=== PATIENT | female | born 1950 | race Caucasian/White ===

== ENCOUNTER 2019-07-15 18:13 | Emergency (ER) | payer MEDICARE, OTHER ==
[~2019-07-15] VITALS: Ht 157.5 cm; Wt 54.0 kg
[2019-07-15 20:14] LABS: BASOPHILS % 0.9 % (0.0-2.0); HEMATOCRIT. 31.6 % (36.0-48.0); HEMOGLOBIN. 10.7 g/dL (12.0-16.0); LYMPHOCYTES % 32.3 % (20.0-50.0); MEAN CORPUSCULAR HEMOGLOBIN 31.1 pg (28.0-32.0); MEAN CORPUSCULAR VOLUME 91.9 fL (81.0-99.0); MEAN PLATELET VOLUME 8.2 fl (7.4-10.4); MONOCYTES % 6.1 % (2.0-8.0); NEUTROPHILS % 58.7 % (40.0-76.0); PLATELET 239 x1000/uL (130-400); RED BLOOD CELL COUNT 3.44 mill/uL (4.2-5.4); RED CELL DISTRIBUTION WIDTH 14.4 % (11.6-14.6)
[2019-07-15 20:21] LABS: CHLORIDE 110 mEq/L (98-107)
[2019-07-15 20:27] LABS: ETHANOL BLOOD < 10 mg/dL
[2019-07-15] MEDS ORDERED: HALOPERIDOL LACTATE 5MG/ML VIAL IM NR (21:30)
[2019-07-15] MEDS ORDERED: LORAZEPAM 2MG/ML CPJ IM ONE (23:15)
[2019-07-15] MEDS ORDERED: HALOPERIDOL LACTATE 5MG/ML VIAL IM ONE ×2 (23:15→23:45)
[2019-07-15] MEDS ORDERED: DIPHENHYDRAMINE 50MG/ML VIAL IM ONE (23:15)
[2019-07-15] MEDS ORDERED: LORAZEPAM 2MG/ML CPJ IM SCH (23:30)
[2019-07-16 02:47] LABS: CLARITY URINE CLEAR (CLEAR); COLOR URINE YELLOW (YELLOW); KETONES URINE NEGATIVE (NEGATIVE); LEUKOCYTE ESTERASE URINE NEGATIVE (NEGATIVE); NITRITE URINE NEGATIVE (NEGATIVE); OCCULT BLOOD URINE NEGATIVE (NEGATIVE); PROTEIN URINE NEGATIVE (NEGATIVE); SPECIFIC GRAVITY URINE 1.015 (1.005-1.030); UROBILINOGEN URINE 0.2 E.U./dL (0.2-1.0)
[2019-07-16 02:57] LABS: *AMPHETAMINES SCREEN URINE NEGATIVE (NEGATIVE); *BARBITURATES SCREEN URINE NEGATIVE (NEGATIVE); *BENZODIAZEPINES SCREEN URINE NEGATIVE (NEGATIVE)
[2019-07-16 02:58] LABS: *COCAINE SCREEN URINE NEGATIVE (NEGATIVE); CANNABINOID URINE SCREEN NEGATIVE (NEGATIVE); METHADONE URINE SCREEN NEGATIVE (NEGATIVE); OPIATES URINE SCREEN NEGATIVE (NEGATIVE); PHENCYCLIDINE URINE SCREEN NEGATIVE (NEGATIVE)
[2019-07-16] MEDS ORDERED: DIPHENHYDRAMINE 50MG/ML VIAL IM STA (09:43)
[2019-07-16] MEDS ORDERED: LORAZEPAM 2MG/ML CPJ IM STA (09:43)
[2019-07-16] MEDS ORDERED: HALOPERIDOL LACTATE 5MG/ML VIAL IM ONE ×2 (09:45→16:15)
[2019-07-16] MEDS ORDERED: LORAZEPAM 2MG/ML CPJ IM ONE (16:15)
[2019-07-17] MEDS ORDERED: LORAZEPAM 2MG/ML CPJ IM ONE ×2 (05:00→16:15)
[2019-07-17] MEDS ORDERED: OLANZAPINE 10 MG/VIAL IM ONE (08:00)
[2019-07-17] MEDS ORDERED: HALOPERIDOL LACTATE 5MG/ML VIAL IM ONE (16:15)
[2019-07-18] MEDS ORDERED: LORAZEPAM 2MG/ML CPJ IM ONE
[2019-07-18] MEDS ORDERED: LORAZEPAM 2MG/ML CPJ IM STA (08:59)
[2019-07-18] MEDS ORDERED: HALOPERIDOL LACTATE 5MG/ML VIAL IM ONE (09:00)
[2019-07-18] MEDS ORDERED: LORAZEPAM 1MG TABLET PO ONE (16:30)
[2019-07-19] MEDS ORDERED: LORAZEPAM 2MG/ML CPJ IM ONE (04:30)
[2019-07-19] MEDS ORDERED: LORAZEPAM 2MG/ML CPJ IM SCH (05:00)
[2019-07-19] MEDS ORDERED: ONDANSETRON HCL 4MG/2ML INJ IV PRN (13:00)
[2019-07-19] MEDS ORDERED: IPRATROPIUM/ALBUTEROL 0.5-3(2.5)MG/3ML NEB HHN PRN (13:00)
[2019-07-19] MEDS ORDERED: LORAZEPAM 2MG/ML CPJ IV ONE (22:30)
[2019-07-19] MEDS ORDERED: HALOPERIDOL LACTATE 5MG/ML VIAL IM ONE (22:30)
[2019-07-20] MEDS ORDERED: HALOPERIDOL LACTATE 5MG/ML VIAL IM ONE
[2019-07-20] MEDS ORDERED: LORAZEPAM 2MG/ML CPJ IM ONE
[2019-07-20 06:28] LABS: BASOPHILS % 1.2 % (0.0-2.0); EOSINOPHILS % 2.3 % (0.0-5.0); HEMATOCRIT. 32.1 % (36.0-48.0); HEMOGLOBIN. 10.9 g/dL (12.0-16.0); LYMPHOCYTES % 35.6 % (20.0-50.0); MEAN CORPUSCULAR HEMOGLOBIN 30.8 pg (28.0-32.0); MEAN PLATELET VOLUME 8.1 fl (7.4-10.4); MONOCYTES % 7.6 % (2.0-8.0); NEUTROPHILS % 53.3 % (40.0-76.0); PLATELET 229 x1000/uL (130-400); RED BLOOD CELL COUNT 3.53 mill/uL (4.2-5.4); RED CELL DISTRIBUTION WIDTH 13.8 % (11.6-14.6)
[2019-07-20 06:31] LABS: CHLORIDE 103 mEq/L (98-107)
[2019-07-20 06:39] LABS: LDL CHOLESTEROL 80 mg/dL (5-100)
[2019-07-20 06:41] LABS: HDL CHOLESTEROL 71 mg/dL (40-59)
[2019-07-20] MEDS: HALOPERIDOL LACTATE 5MG/ML VIAL IM PRN ×2 (10:42→20:20)
[2019-07-21] MEDS: HALOPERIDOL LACTATE 5MG/ML VIAL IM PRN ×2 (04:00→12:55)
[2019-07-21 05:46] LABS: HEMATOCRIT. 35.1 % (36.0-48.0); HEMOGLOBIN. 11.8 g/dL (12.0-16.0); MEAN CORPUSCULAR HEMOGLOBIN 31.1 pg (28.0-32.0); MEAN CORPUSCULAR VOLUME 91.9 fL (81.0-99.0); MEAN PLATELET VOLUME 8.8 fl (7.4-10.4); PLATELET 238 x1000/uL (130-400); RED BLOOD CELL COUNT 3.81 mill/uL (4.2-5.4)
[2019-07-21 05:54] LABS: CHLORIDE 105 mEq/L (98-107)
[2019-07-21 08:28] LABS: PLATELET ESTIMATE NORMAL
[2019-07-21] MEDS ORDERED: OLANZAPINE 10 MG/VIAL IM ONE (20:45)
[2019-07-21] MEDS: ACETAMINOPHEN 325MG TABLET PO PRN (21:17)
[2019-07-22 06:22] LABS: CHLORIDE 104 mEq/L (98-107)
[2019-07-22 06:25] LABS: BASOPHILS % 1.3 % (0.0-2.0); HEMATOCRIT. 33.5 % (36.0-48.0); HEMOGLOBIN. 11.2 g/dL (12.0-16.0); LYMPHOCYTES % 32.9 % (20.0-50.0); MEAN CORPUSCULAR HEMOGLOBIN 30.7 pg (28.0-32.0); MEAN CORPUSCULAR VOLUME 91.9 fL (81.0-99.0); MEAN PLATELET VOLUME 8.8 fl (7.4-10.4); MONOCYTES % 8.5 % (2.0-8.0); NEUTROPHILS % 55.3 % (40.0-76.0); PLATELET 231 x1000/uL (130-400); RED BLOOD CELL COUNT 3.65 mill/uL (4.2-5.4); RED CELL DISTRIBUTION WIDTH 14.2 % (11.6-14.6)
[2019-07-22] MEDS: HALOPERIDOL LACTATE 5MG/ML VIAL IM PRN (21:43)
[2019-07-23] MEDS: HALOPERIDOL LACTATE 5MG/ML VIAL IM PRN ×2 (04:59→22:41)
[2019-07-24] MEDS ORDERED: HALOPERIDOL LACTATE 5MG/ML VIAL IM ONE (02:00)
[2019-07-24] MEDS ORDERED: DIPHENHYDRAMINE 50MG/ML VIAL IM ONE (02:00)
[2019-07-24] MEDS ORDERED: LORAZEPAM 2MG/ML CPJ IM ONE (02:00)
[2019-07-24] MEDS: HALOPERIDOL LACTATE 5MG/ML VIAL IM PRN ×2 (11:44→17:54)
[2019-07-25] MEDS ORDERED: HALOPERIDOL LACTATE 5MG/ML VIAL IM ONE (01:00)
[2019-07-25] MEDS ORDERED: LORAZEPAM 2MG/ML CPJ IM ONE (01:00)
[2019-07-25] MEDS ORDERED: DIPHENHYDRAMINE 50MG/ML VIAL IM ONE (01:00)
[2019-07-25] MEDS: HALOPERIDOL LACTATE 5MG/ML VIAL IM PRN (13:38)
[2019-07-25] MEDS ORDERED: LORAZEPAM 1MG TABLET PO NR (16:30)
[2019-07-25] MEDS ORDERED: LORAZEPAM 2MG/ML CPJ ONE (16:35)
[2019-07-25] MEDS ORDERED: LORAZEPAM 2MG/ML CPJ IM NR (16:45)
[2019-07-25] MEDS ORDERED: OLANZAPINE 10 MG/VIAL IM ONE (16:45)
[2019-07-26] MEDS: HALOPERIDOL LACTATE 5MG/ML VIAL IM PRN (01:42)
[2019-07-26] MEDS ORDERED: HALOPERIDOL LACTATE 5MG/ML VIAL IM ONE (08:45)
[2019-07-26] MEDS ORDERED: DIPHENHYDRAMINE 50MG/ML VIAL IM ONE (08:45)
[2019-07-26] MEDS ORDERED: DIPHENHYDRAMINE 50MG/ML VIAL IM STA (12:23)
[2019-07-26] MEDS ORDERED: LORAZEPAM 2MG/ML CPJ IM STA (12:23)
[2019-07-26] MEDS ORDERED: HALOPERIDOL LACTATE 5MG/ML VIAL IM STA (12:23)
[2019-07-27] MEDS ORDERED: HALOPERIDOL LACTATE 5MG/ML VIAL IM ONE
[2019-07-27] MEDS ORDERED: OLANZAPINE 5MG TABLET PO SCH (02:00)
[2019-07-27] MEDS ORDERED: LORAZEPAM 2MG/ML CPJ IM ONE (04:15)
[2019-07-27] MEDS: OLANZAPINE 5MG TABLET PO SCH (22:13)
[2019-07-28] MEDS ORDERED: LORAZEPAM 2MG/ML CPJ IM SCH (00:45)
[2019-07-28] MEDS ORDERED: HALOPERIDOL LACTATE 5MG/ML VIAL IM SCH (01:00)
[2019-07-28] MEDS: OLANZAPINE 5MG TABLET PO SCH (06:00)
[2019-07-28] MEDS ORDERED: HALOPERIDOL LACTATE 5MG/ML VIAL IM ONE (20:15)
[2019-07-28] MEDS ORDERED: LORAZEPAM 2MG/ML CPJ IM ONE (20:15)
[2019-07-29] MEDS: HALOPERIDOL LACTATE 5MG/ML VIAL IM PRN (06:00)
[2019-07-29] MEDS ORDERED: LORAZEPAM 2MG/ML CPJ IM ONE (18:45)
[2019-07-29] MEDS ORDERED: HALOPERIDOL LACTATE 5MG/ML VIAL IM ONE (19:15)
[2019-07-29] MEDS: OLANZAPINE 5MG TABLET PO SCH (21:00)
[2019-07-30] MEDS: HALOPERIDOL LACTATE 5MG/ML VIAL IM PRN ×2 (09:39→18:03)
[2019-07-30] MEDS ORDERED: LORAZEPAM 2MG/ML CPJ IM PRN (22:30)
[2019-07-30] MEDS: OLANZAPINE 5MG TABLET PO SCH (22:30)
[2019-07-30] MEDS ORDERED: HALOPERIDOL LACTATE 5MG/ML VIAL IM ONE (23:00)
[2019-07-31] MEDS ORDERED: OLANZAPINE 10 MG/VIAL IM ONE (18:00)
[2019-07-31] MEDS ORDERED: HALOPERIDOL LACTATE 5MG/ML VIAL IM ONE (18:00)
[2019-08-01] MEDS: ACETAMINOPHEN 325MG TABLET PO PRN (00:11)
[2019-08-01] MEDS: OLANZAPINE 5MG TABLET PO SCH ×2 (00:11→03:32)
[2019-08-01] MEDS ORDERED: HALOPERIDOL LACTATE 5MG/ML VIAL IM ONE (03:15)
[2019-08-01] MEDS ORDERED: DIPHENHYDRAMINE 50MG/ML VIAL IM ONE (03:15)
[2019-08-01] MEDS ORDERED: LORAZEPAM 1MG TABLET PO ONE ×2 (08:15→16:30)
[2019-08-01 13:02] LABS: BASOPHILS % 0.7 % (0.0-2.0); EOSINOPHILS % 2.1 % (0.0-5.0); HEMATOCRIT. 32.1 % (36.0-48.0); LYMPHOCYTES % 22.8 % (20.0-50.0); MEAN CORPUSCULAR HEMOGLOBIN 31.6 pg (28.0-32.0); MEAN CORPUSCULAR VOLUME 92.4 fL (81.0-99.0); MEAN PLATELET VOLUME 8.3 fl (7.4-10.4); MONOCYTES % 6.9 % (2.0-8.0); NEUTROPHILS % 67.5 % (40.0-76.0); PLATELET 236 x1000/uL (130-400); RED BLOOD CELL COUNT 3.47 mill/uL (4.2-5.4); RED CELL DISTRIBUTION WIDTH 14.4 % (11.6-14.6)
[2019-08-01 13:08] LABS: CHLORIDE 106 mEq/L (98-107)
[2019-08-01] MEDS ORDERED: OLANZAPINE 5MG TABLET ODT PO ONE (16:30)
[2019-08-02] MEDS: HALOPERIDOL LACTATE 5MG/ML VIAL IM PRN (00:45)
[2019-08-02] MEDS: OLANZAPINE 5MG TABLET PO SCH (01:19)
[2019-08-02] MEDS ORDERED: LORAZEPAM 1MG TABLET PO ONE (04:15)
[2019-08-02] MEDS ORDERED: OLANZAPINE 5MG TABLET ODT PO ONE (14:15)
[2019-08-02 19:59] VITALS: BP 147/68
== END 2019-08-02 21:00 ==
LOC: ER 18:13 → CANBEDREQ 07-16 04:16 → UNDOADMIN 07-18 18:00 → MICUSO 07-18 18:00 → EDBEDREQ 07-19 11:23 → MICUSO 07-19 14:23 → ER 08-02 21:00
DX: R45.851 Suicidal ideations (principal); F31.9 Bipolar disorder, unspecified; F03.90 Unspecified dementia, unspecified severity, without behavioral disturbance, psychotic disturbance, mood disturbance, and anxiety; Z88.8 Allergy status to other drugs, medicaments and biological substances
CPT/HCPCS: 36415; 71045; 80048; 80053; 80061; 80320; 84443; 85025; 93005; 93970; 96372; 99285; J1200; J1630; J2060; J3490; G0480

== ENCOUNTER 2019-09-05 22:05 | Emergency (ER) | payer MEDICARE, OTHER ==
[~2019-09-05] VITALS: Ht 152.4 cm; Wt 68.0 kg
[2019-09-05] MEDS ORDERED: OLANZAPINE 10 MG/VIAL IM STA (23:00)
[2019-09-06] MEDS ORDERED: LORAZEPAM 0.5MG TABLET PO ONE
[2019-09-06 00:19] LABS: EOSINOPHILS % 0.9 % (0.0-5.0); HEMATOCRIT. 34.8 % (36.0-48.0); HEMOGLOBIN. 11.8 g/dL (12.0-16.0); LYMPHOCYTES % 18.4 % (20.0-50.0); MEAN CORPUSCULAR HEMOGLOBIN 30.8 pg (28.0-32.0); MEAN CORPUSCULAR VOLUME 90.5 fL (81.0-99.0); MEAN PLATELET VOLUME 8.7 fl (7.4-10.4); MONOCYTES % 7.2 % (2.0-8.0); NEUTROPHILS % 72.5 % (40.0-76.0); PLATELET 205 x1000/uL (130-400); RED BLOOD CELL COUNT 3.84 mill/uL (4.2-5.4)
[2019-09-06 00:26] LABS: CHLORIDE 110 mEq/L (98-107)
[2019-09-06 00:30] LABS: ETHANOL BLOOD < 10 mg/dL
[2019-09-06] MEDS ORDERED: ZIPRASIDONE MESYLATE 20MG/VIAL IM ONE (06:15)
[2019-09-06] MEDS ORDERED: LORAZEPAM 2MG/ML CPJ IM STA ×2 (06:46→13:46)
[2019-09-06 06:59] LABS: CLARITY URINE CLEAR (CLEAR); COLOR URINE YELLOW (YELLOW); KETONES URINE NEGATIVE (NEGATIVE); LEUKOCYTE ESTERASE URINE NEGATIVE (NEGATIVE); NITRITE URINE NEGATIVE (NEGATIVE); OCCULT BLOOD URINE 1+ (NEGATIVE); PROTEIN URINE NEGATIVE (NEGATIVE); SPECIFIC GRAVITY URINE 1.014 (1.005-1.030); UROBILINOGEN URINE 0.2 E.U./dL (0.2-1.0)
[2019-09-06 07:11] LABS: *AMPHETAMINES SCREEN URINE NEGATIVE (NEGATIVE); *BARBITURATES SCREEN URINE NEGATIVE (NEGATIVE); *BENZODIAZEPINES SCREEN URINE NEGATIVE (NEGATIVE); *COCAINE SCREEN URINE NEGATIVE (NEGATIVE)
[2019-09-06 07:12] LABS: CANNABINOID URINE SCREEN NEGATIVE (NEGATIVE); METHADONE URINE SCREEN NEGATIVE (NEGATIVE); OPIATES URINE SCREEN NEGATIVE (NEGATIVE); PHENCYCLIDINE URINE SCREEN NEGATIVE (NEGATIVE)
[2019-09-06] MEDS ORDERED: HALOPERIDOL LACTATE 5MG/ML VIAL IM ONE ×2 (14:00→20:15)
[2019-09-06] MEDS ORDERED: DIVALPROEX SODIUM 500MG ER TABLET PO SCH (22:45)
[2019-09-06] MEDS: QUETIAPINE FUMARATE 25MG TABLET PO SCH (22:45)
[2019-09-06] MEDS ORDERED: DIVALPROEX SODIUM 500MG DR TABLET PO SCH (23:27)
[2019-09-07] MEDS: HALOPERIDOL LACTATE 5MG/ML VIAL IM SCH ×4 (01:38→23:01)
[2019-09-07] MEDS: LORAZEPAM 2MG/ML CPJ IM SCH ×4 (01:38→23:01)
[2019-09-07] MEDS: DIVALPROEX SODIUM 500MG DR TABLET PO SCH ×2 (03:26→17:25)
[2019-09-07] MEDS: QUETIAPINE FUMARATE 25MG TABLET PO SCH ×3 (08:54→17:25)
[2019-09-08] MEDS: LORAZEPAM 2MG/ML CPJ IM SCH ×2 (05:03→19:53)
[2019-09-08] MEDS: HALOPERIDOL LACTATE 5MG/ML VIAL IM SCH ×2 (05:03→19:53)
[2019-09-08] MEDS ORDERED: LORAZEPAM 2MG/ML CPJ IM STA (07:53)
[2019-09-08] MEDS ORDERED: HALOPERIDOL LACTATE 5MG/ML VIAL IM ONE (08:00)
[2019-09-08] MEDS ORDERED: DIVALPROEX SODIUM 250MG ER TABLET PO ONE (09:00)
[2019-09-08] MEDS: DIVALPROEX SODIUM 500MG DR TABLET PO SCH ×2 (10:48→17:36)
[2019-09-08] MEDS: QUETIAPINE FUMARATE 25MG TABLET PO SCH ×6 (10:50→17:36)
[2019-09-09] MEDS: HALOPERIDOL LACTATE 5MG/ML VIAL IM PRN ×2 (02:03→10:23)
[2019-09-09] MEDS: LORAZEPAM 2MG/ML CPJ IM PRN ×3 (02:04→22:23)
[2019-09-09] MEDS: QUETIAPINE FUMARATE 25MG TABLET PO SCH ×3 (09:33→18:30)
[2019-09-09] MEDS: DIVALPROEX SODIUM 500MG DR TABLET PO SCH ×2 (09:33→18:00)
[2019-09-10] MEDS: HALOPERIDOL LACTATE 5MG/ML VIAL IM PRN ×3 (02:09→20:19)
[2019-09-10] MEDS: LORAZEPAM 2MG/ML CPJ IM PRN ×3 (05:34→20:19)
[2019-09-10] MEDS: QUETIAPINE FUMARATE 25MG TABLET PO SCH ×3 (09:18→18:38)
[2019-09-10] MEDS: DIVALPROEX SODIUM 500MG DR TABLET PO SCH ×2 (09:18→18:38)
[2019-09-11] MEDS: HALOPERIDOL LACTATE 5MG/ML VIAL IM PRN ×2 (02:29→20:43)
[2019-09-11] MEDS: LORAZEPAM 2MG/ML CPJ IM PRN ×2 (02:29→20:43)
[2019-09-11] MEDS: QUETIAPINE FUMARATE 25MG TABLET PO SCH ×3 (09:18→18:03)
[2019-09-11] MEDS: DIVALPROEX SODIUM 500MG DR TABLET PO SCH ×2 (09:18→17:59)
[2019-09-12] MEDS: QUETIAPINE FUMARATE 25MG TABLET PO SCH ×2 (01:44→13:19)
[2019-09-12] MEDS: LORAZEPAM 2MG/ML CPJ IM PRN (03:12)
[2019-09-12] MEDS: HALOPERIDOL LACTATE 5MG/ML VIAL IM PRN (03:12)
[2019-09-12] MEDS ORDERED: LORAZEPAM 2MG/ML CPJ IM STA (10:13)
[2019-09-12] MEDS ORDERED: HALOPERIDOL LACTATE 5MG/ML VIAL IM ONE (10:15)
[2019-09-12] MEDS: DIVALPROEX SODIUM 500MG DR TABLET PO SCH (11:00)
[2019-09-12 15:01] VITALS: BP 119/53
== END 2019-09-12 15:30 | disposition short-term general hospital (02) ==
LOC: ER 22:10
DX: R26.9 Unspecified abnormalities of gait and mobility (principal); F91.8 Other conduct disorders; F99 Mental disorder, not otherwise specified; Z75.1 Person awaiting admission to adequate facility elsewhere; Z88.8 Allergy status to other drugs, medicaments and biological substances
CPT/HCPCS: 36415; 80053; 80307; 80320; 80329; 85025; 93005; 96372; 99285; J1630; J2060; J3486; J3490; G0480